=== PATIENT | female | born 1965 | race Caucasian/White ===

== ENCOUNTER → 2024-07-10 | Outpatient (CLI) | payer BC ==
--- NOTE | 2024-07-10 13:57 | MM ---
Reason for Exam: Screening (asymptomatic). Last mammogram was performed 3 year(s) and 10 month(s) ago. Patient History: Menarche at age 15. Patient has no children. Postmenopausal. Patient tested for BRCA1 outcome was negative. Patient tested for BRCA2 outcome was negative. Paternal uncle had breast cancer, age 65. Paternal aunt (Hermelinda) had breast cancer, age 45. Paternal aunt (Marisa) had breast cancer, age 45. Paternal aunt (Jen) had breast cancer, age 34. Risk Values: Karen 5 year model risk: 1.4%. NCI Lifetime model risk: 7.6%. Prior Study Comparison: 02/09/2017 Bilateral Screening Mammogram, Unknown. 09/19/2020 Bilateral Screening Mammogram, Unknown. Tissue Density: There are scattered areas of fibroglandular density. Findings: Analyzed By CAD. There is no suspicious group of microcalcifications or new suspicious mass in either breast. Overall Assessment: Negative, BI-RAD 1 Management: Screening Mammogram of both breasts in 1 year. . Patient should continue monthly self-breast exams. A clinical breast exam by your physician is recommended on an annual basis. This exam should not preclude additional follow-up of suspicious palpable abnormalities. Note on Karen scores and lifetime risk: 1. A Karen score greater than 3% is considered moderate risk. If this is the case, consider specialist referral to assess eligibility for a risk reducing agent. 2. If overall lifetime risk for the development of breast cancer is 20% or higher, the patient may qualify for future screening with alternating mammogram and breast MRI. [facility], , 07/10/2024 1:54 PM. Electronically signed and approved by: Ptier Allison M.D.
--- NOTE | 2024-07-10 14:24 | BD ---
EXAMINATION TYPE: Axial Bone Density DATE OF EXAM: 07/10/2024 CLINICAL HISTORY: 59 years old Female. ICD-10 CODE: Z78.0 MENOPAUSAL , Additional History: Height: 65 Weight: 238 FRAX RISK QUESTIONS: Alcohol (3 or more units per day): no Family History (Parent hip fracture): no Glucocorticoids (More than 3mos): no (Ex: prednisone, prednisolone, methylprednisolone, dexamethasone, and hydrocortisone). History of Fracture in Adulthood: no Secondary Osteoporosis: 1. Type 1 Diabetes: no 2. Hyperthyroidism: no 3. Menopause before 45: no 4. Malnutrition: no 5. Chronic liver disease: no Rheumatoid Arthritis: no Current Tobacco Use: no RISK FACTORS HISTORY OF: Surgery to Spine/Hip(right/left)/Wrist (right/left): l-5 When: 2009 EXAM MEASUREMENTS: Bone mineral densitometry was performed using the [employer] System. Bone mineral density as measured about the Lumbar spine is: ----- L1-L4(G/cm2): 1.488 T Score Values are as follows: ----- L1: 1.1 ----- L2: 1.6 ----- L3: 2.5 ----- L4: 5.4 ----- L1-L4: 2.6 Z Score Values are as follows: ----- L1: 1.0 ----- L2: 1.6 ----- L3: 2.5 ----- L4: 5.3 ----- L1-L4: 2.5 Bone mineral density : baseline Bone mineral density about the R hip (g/cm2): 1.112 Bone mineral density about the L hip (g/cm2): 1.190 T Score values are as follows: -----R Neck: 0.0 -----L Neck: 0.3 -----R Total: 0.8 -----L Total: 1.4 Z Score values are as follows: -----R Neck: 0.5 -----L Neck: 0.8 -----R Total: 0.9 -----L Total: 1.5 Bone mineral density : baseline FRAX%s: The graph provided illustrates a 5.3% chance for a major osteoporotic fx and a 0.1% chance fo r the hips probability for fx in 10 years time. IMPRESSION: Normal (Values between +1 and -1 indicate normal bone mass). Consider repeating this study in 5 year s or sooner if there is some new clinical indication. NOTE: T-SCORE=SD OF THE YOUNG ADULT MEAN. [facility], , 07/10/2024 2:21 PM
== END | disposition home or self-care (01) ==
LOC: RADBDWWP 13:11
PROVIDERS: ATTEND Obstetrics & Gynecology
DX: Z12.31 Encounter for screening mammogram for malignant neoplasm of breast (principal); Z78.0 Asymptomatic menopausal state; Z80.3 Family history of malignant neoplasm of breast; R92.323 Mammographic fibroglandular density, bilateral breasts
CPT/HCPCS: 77063; 77067; 77080